=== PATIENT | male | born 1985 | race Caucasian/White ===

== ENCOUNTER 2018-10-19 15:11 | Emergency (ER) | payer SELFPAY ==
[~2018-10-19] VITALS: Ht 162.6 cm; Wt 88.9 kg
[2018-10-19 15:15] VITALS: Ht 162.6 cm; Wt 88.9 kg
[2018-10-19 17:15] LABS: URIC ACID 5.3 mg/dL (3.5-7.2)
[2018-10-19 17:30] LABS: C REACTIVE PROTEIN 0.2 mg/dL (<=0.9)
[2018-10-19 18:33] VITALS: BP 131/69
== END 2018-10-19 18:05 | disposition home or self-care (01) ==
LOC: ED 15:11
PROVIDERS: Emergency Medicine
DX: M25.571 Pain in right ankle and joints of right foot (principal); M25.531 Pain in right wrist
CPT/HCPCS: J1885; J7512